=== PATIENT | female | born 1975 | race Caucasian/White ===

== ENCOUNTER 2023-11-08 23:50 | Emergency (ER) | payer MEDICAID ==
[~2023-11-08] VITALS: Ht 154.9 cm; Wt 90.7 kg
[~2023-11-08 23:50] MED LIST: ACET-8905 PO; NAPR-54 PO
[2023-11-09 00:15] VITALS: BP 132/93; PULSE 108; RESP 16; TEMP 97.4; O2SAT 99
[2023-11-09] MEDS ORDERED: KETOROLAC 30 MG/ML VIAL IM ONE (00:45)
[2023-11-09] MEDS ORDERED: ACET-2619 PO (02:48)
[2023-11-09] MEDS ORDERED: IBUP-2213 PO (02:48)
== END 2023-11-09 02:58 | disposition home or self-care (01) ==
LOC: MED 23:50
DX: S82.64XA Nondisplaced fracture of lateral malleolus of right fibula, initial encounter for closed fracture (principal); X58.XXXA Exposure to other specified factors, initial encounter; Y93.89 Activity, other specified; Y92.89 Other specified places as the place of occurrence of the external cause; Y99.8 Other external cause status
CPT/HCPCS: 73610; 96372; 99283; J1885